=== PATIENT | female | born 1960 | race Caucasian/White ===

== ENCOUNTER → 2016-04-03 | Outpatient (CLI) | payer OTHER ==
[2016-04-03 13:19] LABS: ANION GAP 8 MEQ/L (8-16); BLOOD UREA NITROGEN 22 MG/DL (7-18); CALCIUM LEVEL 9.1 MG/DL (8.5-10.1); CARBON DIOXIDE LEVEL 29 MEQ/L (21-32); CHLORIDE LEVEL 108 MEQ/L (98-107); CHOLESTEROL LEVEL 136 MG/DL (<200); CREATININE FOR GFR 0.84 MG/DL (0.55-1.02); FREE T4 0.98 NG/DL (0.76-1.46); GLOMERULAR FILTRATION RATE > 60.0 (>51); GLUCOSE, FASTING 97 MG/DL (70-105); POTASSIUM SERUM 4.4 MEQ/L (3.5-5.1); SODIUM LEVEL 145 MEQ/L (136-145); TRIGLYCERIDES LEVEL 40 MG/DL (<150)
== END ==
LOC: M WUC 09:22
PROVIDERS: ATTEND Physician Assistant
DX: I10 Essential (primary) hypertension (principal)

== ENCOUNTER → 2016-05-08 | Outpatient (REF) | payer OTHER | LOC: M LAB REF 16:56 | PROVIDERS: ATTEND Family Medicine | DX: L02.214 Cutaneous abscess of groin (principal) ==

== ENCOUNTER → 2016-06-19 | Outpatient (REF) | payer OTHER | LOC: M LAB REF 16:17 | PROVIDERS: ATTEND Surgery | DX: L02.224 Furuncle of groin (principal) ==

== ENCOUNTER → 2016-06-20 | Outpatient (CLI) | payer OTHER ==
[2016-06-20 19:16] LABS: BASO % 0.4 % (0.0-1.0); EOS # 0.2 K/mm3 (0.0-0.50); EOS % 2.9 % (0.0-3.0); LARGE UNSTAINED CELL # 0.1 K/mm3 (0.0-0.4); LARGE UNSTAINED CELL % 1.9 % (0.0-4.0); LYMPH # 1.8 K/mm3 (1.5-4.5); LYMPH % 29.4 % (24.0-44.0); MEAN CORPUSCULAR HEMOGLOBIN 31.4 pg (27.0-33.0); MEAN CORPUSCULAR HGB CONC 34.3 g/dl (32.0-36.5); MEAN CORPUSCULAR VOLUME 91.7 fl (80.0-96.0); MONO # 0.3 K/mm3 (0.0-0.8); MONO % 5.4 % (0.0-5.0); NEUTROPHILS # 3.5 K/mm3 (1.8-7.7); NEUTROPHILS % 60.1 % (36.0-66.0); PLATELET COUNT, AUTOMATED 264 k/mm3 (150-450); RED CELL DISTRIBUTION WIDTH 13.5 % (11.5-14.5); WHITE BLOOD COUNT 5.9 K/mm3 (4.0-10.0)
[2016-06-20 19:54] LABS: ERYTHROCYTE SEDIMENTATION RATE 8 mm/hr (0-30)
== END ==
LOC: M WUC 13:35
PROVIDERS: ATTEND Physician Assistant
DX: M17.11 Unilateral primary osteoarthritis, right knee (principal)

== ENCOUNTER → 2016-08-22 | Outpatient (CLI) | payer OTHER ==
[2016-08-24 00:07] LABS: Lyme Disease IgG/IgM Antibodie <0.91 ISR (0.00-0.90); Lyme Disease IgM Ab Quantitati <0.80 index (0.00-0.79)
== END ==
LOC: M WUC 10:10
PROVIDERS: ATTEND Physician Assistant
DX: M17.11 Unilateral primary osteoarthritis, right knee (principal)

== ENCOUNTER → 2016-10-09 | Outpatient (CLI) | payer OTHER ==
[2016-10-11 00:06] LABS: Lyme Disease IgG/IgM Antibodie <0.91 ISR (0.00-0.90); Lyme Disease IgM Ab Quantitati <0.80 index (0.00-0.79)
== END ==
LOC: M WUC 10:39
PROVIDERS: ATTEND Family Medicine
DX: R21 Rash and other nonspecific skin eruption (principal)

== ENCOUNTER → 2017-03-22 | Outpatient (REF) | payer OTHER | LOC: M LAB REF 16:09 | DX: J02.9 Acute pharyngitis, unspecified (principal) ==

== ENCOUNTER → 2017-03-29 | Outpatient (CLI) | payer OTHER ==
[2017-03-29 13:36] LABS: BASO % 0.6 % (0.0-1.0); EOS # 0.2 10^3/uL (0.0-0.50); EOS % 2.9 % (0.0-3.0); HEMATOCRIT 43.1 % (36.0-47.0); HEMOGLOBIN 14.8 g/dl (12.0-16.0); IMMATURE GRANULOCYTE % 0.2 % (0-0); LYMPH % 37.8 % (24.0-44.0); MEAN CORPUSCULAR HEMOGLOBIN 31.1 pg (27.0-33.0); MEAN CORPUSCULAR HGB CONC 34.3 g/dl (32.0-36.5); MEAN CORPUSCULAR VOLUME 90.5 fl (80.0-96.0); MONO # 0.3 10^3/uL (0.0-0.8); MONO % 5.6 % (0.0-5.0); NEUTROPHILS # 2.8 10^3/uL (1.8-7.7); NEUTROPHILS % 52.9 % (36.0-66.0); PLATELET COUNT, AUTOMATED 291 10^3/uL (150-450); RED BLOOD COUNT 4.76 10^6/uL (4.00-5.40); RED CELL DISTRIBUTION WIDTH 13.1 % (11.5-14.5); WHITE BLOOD COUNT 5.2 10^3/uL (4.0-10.0)
[2017-03-29 14:12] LABS: ALBUMIN 3.9 GM/DL (3.2-5.2); ALKALINE PHOSPHATASE 65 U/L (45-117); ALT/SGPT 17 U/L (12-78); ANION GAP 9 MEQ/L (8-16); AST/SGOT 14 U/L (7-37); BILIRUBIN,TOTAL 0.5 MG/DL (0.2-1.0); BLOOD UREA NITROGEN 15 MG/DL (7-18); CALCIUM LEVEL 9.4 MG/DL (8.5-10.1); CARBON DIOXIDE LEVEL 28 MEQ/L (21-32); CHLORIDE LEVEL 106 MEQ/L (98-107); CHOLESTEROL LEVEL 124 MG/DL (<200); CHOLESTEROL RISK RATIO 2.638 (<5); CREATININE FOR GFR 0.78 MG/DL (0.55-1.02); GLOMERULAR FILTRATION RATE > 60.0 (>51); GLUCOSE, FASTING 91 MG/DL (70-105); HDL CHOLESTEROL 47 MG/DL (>40); NON-HDL-C 77 MG/DL; POTASSIUM SERUM 4.3 MEQ/L (3.5-5.1); SODIUM LEVEL 143 MEQ/L (136-145); TOTAL PROTEIN 7.3 GM/DL (6.4-8.2); TRIGLYCERIDES LEVEL 50 MG/DL (<150)
[2017-03-29 14:13] LABS: ALBUMIN/GLOBULIN RATIO 1.15 (1.00-1.93)
== END ==
LOC: M WUC 08:57
DX: I10 Essential (primary) hypertension (principal)
CPT/HCPCS: 80053

== ENCOUNTER → 2017-09-02 | Outpatient (REF) | payer OTHER | LOC: M LAB REF 16:41 | DX: J02.9 Acute pharyngitis, unspecified (principal) ==

== ENCOUNTER → 2017-10-02 | Outpatient (CLI) | payer OTHER ==
[2017-10-02 08:47] LABS: BASO % 0.4 % (0.0-1.0); EOS # 0.1 10^3/uL (0.0-0.50); EOS % 1.6 % (0.0-3.0); HEMATOCRIT 41.1 % (36.0-47.0); IMMATURE GRANULOCYTE % 0.2 % (0-3.0); LYMPH # 1.9 10^3/uL (1.5-4.5); LYMPH % 37.4 % (24.0-44.0); MEAN CORPUSCULAR HEMOGLOBIN 31.4 pg (27.0-33.0); MEAN CORPUSCULAR HGB CONC 34.1 g/dl (32.0-36.5); MEAN CORPUSCULAR VOLUME 92.2 fl (80.0-96.0); MONO # 0.3 10^3/uL (0.0-0.8); MONO % 5.7 % (0.0-5.0); NEUTROPHILS # 2.8 10^3/uL (1.8-7.7); NEUTROPHILS % 54.7 % (36.0-66.0); PLATELET COUNT, AUTOMATED 251 10^3/uL (150-450); RED BLOOD COUNT 4.46 10^6/uL (4.00-5.40); RED CELL DISTRIBUTION WIDTH 13.5 % (11.5-14.5); WHITE BLOOD COUNT 5.1 10^3/uL (4.0-10.0)
[2017-10-02 09:03] LABS: ALBUMIN 3.6 GM/DL (3.2-5.2); ALBUMIN/GLOBULIN RATIO 1.09 (1.00-1.93); ALKALINE PHOSPHATASE 72 U/L (45-117); ALT/SGPT 18 U/L (12-78); ANION GAP 6 MEQ/L (8-16); AST/SGOT 11 U/L (7-37); BILIRUBIN,TOTAL 0.4 MG/DL (0.2-1.0); BLOOD UREA NITROGEN 19 MG/DL (7-18); CALCIUM LEVEL 8.5 MG/DL (8.5-10.1); CARBON DIOXIDE LEVEL 28 MEQ/L (21-32); CHLORIDE LEVEL 108 MEQ/L (98-107); CHOLESTEROL LEVEL 136 MG/DL (<200); CHOLESTEROL RISK RATIO 2.305 (<5); CREATININE FOR GFR 0.81 MG/DL (0.55-1.30); GLOMERULAR FILTRATION RATE > 60.0 (>51); GLUCOSE, FASTING 94 MG/DL (70-100); HDL CHOLESTEROL 59 MG/DL (>40); LDL CHOLESTEROL 68.4 MG/DL (<100); NON-HDL-C 77 MG/DL; POTASSIUM SERUM 4.2 MEQ/L (3.5-5.1); SODIUM LEVEL 142 MEQ/L (136-145); TOTAL PROTEIN 6.9 GM/DL (6.4-8.2); TRIGLYCERIDES LEVEL 43 MG/DL (<150)
== END ==
LOC: M WUC 08:18
DX: I10 Essential (primary) hypertension (principal)
CPT/HCPCS: 80053

== ENCOUNTER → 2018-07-01 | Outpatient (CLI) | payer OTHER ==
[2018-07-01 09:28] LABS: BASO % 0.3 % (0.0-1.0); EOS # 0.1 10^3/uL (0.0-0.50); HEMATOCRIT 41.9 % (36.0-47.0); HEMOGLOBIN 13.9 g/dl (12.0-15.5); LYMPH % 16.4 % (24.0-44.0); MEAN CORPUSCULAR HEMOGLOBIN 30.8 pg (27.0-33.0); MEAN CORPUSCULAR HGB CONC 33.2 g/dl (32.0-36.5); MEAN CORPUSCULAR VOLUME 92.7 fl (80.0-96.0); MONO # 0.5 10^3/uL (0.0-0.8); MONO % 7.6 % (0.0-5.0); NEUTROPHILS # 4.5 10^3/uL (1.8-7.7); NEUTROPHILS % 74.5 % (36.0-66.0); PLATELET COUNT, AUTOMATED 244 10^3/uL (150-450); RED BLOOD COUNT 4.52 10^6/uL (4.00-5.40)
[2018-07-01 10:01] LABS: ALBUMIN 3.8 GM/DL (3.2-5.2); ALT/SGPT 26 U/L (12-78); BILIRUBIN,TOTAL 0.8 MG/DL (0.2-1.0); BLOOD UREA NITROGEN 13 MG/DL (7-18); CARBON DIOXIDE LEVEL 28 MEQ/L (21-32); CHLORIDE LEVEL 107 MEQ/L (98-107); CHOLESTEROL LEVEL 179 MG/DL (<200); CHOLESTEROL RISK RATIO 2.934 (<5); CREATININE FOR GFR 0.74 MG/DL (0.55-1.30); FREE T4 1.01 NG/DL (0.76-1.46); GLOMERULAR FILTRATION RATE > 60.0 (>51); GLUCOSE, FASTING 100 MG/DL (70-100); HDL CHOLESTEROL 61 MG/DL (>40); LDL CHOLESTEROL 106 MG/DL (<100); NON-HDL-C 118 MG/DL; POTASSIUM SERUM 4.2 MEQ/L (3.5-5.1); SODIUM LEVEL 141 MEQ/L (136-145); TOTAL PROTEIN 7.1 GM/DL (6.4-8.2); TRIGLYCERIDES LEVEL 59 MG/DL (<150)
== END ==
LOC: M WUC 08:14
PROVIDERS: ATTEND Physician Assistant
DX: E78.5 Hyperlipidemia, unspecified (principal); I10 Essential (primary) hypertension

== ENCOUNTER → 2018-07-21 | Outpatient (CLI) | payer OTHER ==
[2018-07-28 14:16] LABS: STREP PNEUMO TYPE 1 <0.1 ug/mL (>1.3); STREP PNEUMO TYPE 12F <0.1 ug/mL (>1.3); STREP PNEUMO TYPE 14 7.3 ug/mL (>1.3); STREP PNEUMO TYPE 18C 0.1 ug/mL (>1.3); STREP PNEUMO TYPE 19A 0.7 ug/mL (>1.3); STREP PNEUMO TYPE 19F 1.2 ug/mL (>1.3); STREP PNEUMO TYPE 23F 0.2 ug/mL (>1.3); STREP PNEUMO TYPE 3 1.1 ug/mL (>1.3); STREP PNEUMO TYPE 4 <0.1 ug/mL (>1.3); STREP PNEUMO TYPE 6B 0.9 ug/mL (>1.3); STREP PNEUMO TYPE 7F 10.5 ug/mL (>1.3); STREP PNEUMO TYPE 8 2.3 ug/mL (>1.3); STREP PNEUMO TYPE 9N <0.1 ug/mL (>1.3); STREP PNEUMO TYPE 9V 0.2 ug/mL (>1.3)
== END ==
LOC: M WUC 12:00
PROVIDERS: ATTEND Family Medicine
DX: J32.9 Chronic sinusitis, unspecified (principal)

== ENCOUNTER → 2018-10-31 | Outpatient (CLI) | payer OTHER ==
[2018-10-31 11:27] LABS: BLOOD UREA NITROGEN 16 MG/DL (7-18); CALCIUM LEVEL 9.1 MG/DL (8.5-10.1); CARBON DIOXIDE LEVEL 31 MEQ/L (21-32); CHLORIDE LEVEL 105 MEQ/L (98-107); CREATININE FOR GFR 0.88 MG/DL (0.55-1.30); GLOMERULAR FILTRATION RATE > 60.0 (>51); GLUCOSE, FASTING 91 MG/DL (70-100); POTASSIUM SERUM 4.7 MEQ/L (3.5-5.1); SODIUM LEVEL 141 MEQ/L (136-145)
== END ==
LOC: M WUC 09:18
PROVIDERS: ATTEND Physician Assistant
DX: I10 Essential (primary) hypertension (principal)

== ENCOUNTER → 2018-12-05 | Outpatient (REF) | payer OTHER | LOC: M LAB REF 13:26 | PROVIDERS: ATTEND Physician Assistant | DX: J02.9 Acute pharyngitis, unspecified (principal) ==

== ENCOUNTER → 2019-01-05 | Outpatient (CLI) | payer OTHER ==
[2019-01-05 12:41] LABS: BASO % 0.4 % (0.0-1.0); EOS # 0.1 10^3/uL (0.0-0.5); EOS % 2.1 % (0.0-3.0); HEMATOCRIT 43.9 % (36.0-47.0); HEMOGLOBIN 14.6 g/dl (12.0-15.5); LYMPH % 37.1 % (24.0-44.0); MEAN CORPUSCULAR HEMOGLOBIN 31.2 pg (27.0-33.0); MEAN CORPUSCULAR HGB CONC 33.3 g/dl (32.0-36.5); MEAN CORPUSCULAR VOLUME 93.8 fl (80.0-96.0); MONO # 0.3 10^3/uL (0.0-0.8); NEUTROPHILS # 2.9 10^3/uL (1.5-8.5); NEUTROPHILS % 54.2 % (36.0-66.0); PLATELET COUNT, AUTOMATED 300 10^3/uL (150-450); RED BLOOD COUNT 4.68 10^6/uL (4.00-5.40); WHITE BLOOD COUNT 5.3 10^3/uL (4.0-10.0)
[2019-01-05 12:54] LABS: ALBUMIN 3.7 GM/DL (3.2-5.2); ALT/SGPT 16 U/L (12-78); BILIRUBIN,TOTAL 0.6 MG/DL (0.2-1.0); BLOOD UREA NITROGEN 17 MG/DL (7-18); CALCIUM LEVEL 9.2 MG/DL (8.5-10.1); CARBON DIOXIDE LEVEL 29 MEQ/L (21-32); CHLORIDE LEVEL 104 MEQ/L (98-107); CREATININE FOR GFR 0.77 MG/DL (0.55-1.30); GLOMERULAR FILTRATION RATE > 60.0 (>51); GLUCOSE, FASTING 87 MG/DL (70-100); POTASSIUM SERUM 3.8 MEQ/L (3.5-5.1); SODIUM LEVEL 140 MEQ/L (136-145)
== END ==
LOC: M WUC 08:54
PROVIDERS: ATTEND Family Medicine
DX: I10 Essential (primary) hypertension (principal)

== ENCOUNTER → 2019-06-23 | Outpatient (CLI) | payer OTHER ==
[2019-06-23 13:15] LABS: BASO % 0.6 % (0.0-1.0); EOS # 0.1 10^3/uL (0.0-0.5); EOS % 2.2 % (0.0-3.0); HEMATOCRIT 44.7 % (36.0-47.0); HEMOGLOBIN 14.8 g/dl (12.0-15.5); LYMPH # 1.6 10^3/uL (1.5-5.0); LYMPH % 29.7 % (24.0-44.0); MEAN CORPUSCULAR HEMOGLOBIN 30.7 pg (27.0-33.0); MEAN CORPUSCULAR HGB CONC 33.1 g/dl (32.0-36.5); MEAN CORPUSCULAR VOLUME 92.7 fl (80.0-96.0); MONO # 0.4 10^3/uL (0.0-0.8); MONO % 6.6 % (0.0-5.0); NEUTROPHILS # 3.3 10^3/uL (1.5-8.5); NEUTROPHILS % 60.5 % (36.0-66.0); PLATELET COUNT, AUTOMATED 301 10^3/uL (150-450); RED BLOOD COUNT 4.82 10^6/uL (4.00-5.40); WHITE BLOOD COUNT 5.4 10^3/uL (4.0-10.0)
[2019-06-23 13:27] LABS: ALBUMIN 3.7 GM/DL (3.2-5.2); ALT/SGPT 17 U/L (12-78); BILIRUBIN,TOTAL 0.4 MG/DL (0.2-1.0); BLOOD UREA NITROGEN 17 MG/DL (7-18); CALCIUM LEVEL 9.3 MG/DL (8.5-10.1); CARBON DIOXIDE LEVEL 30 MEQ/L (21-32); CHLORIDE LEVEL 105 MEQ/L (98-107); CHOLESTEROL LEVEL 152 MG/DL (<200); CREATININE FOR GFR 0.78 MG/DL (0.55-1.30); FREE T4 0.94 NG/DL (0.76-1.46); GLOMERULAR FILTRATION RATE > 60.0 (>51); GLUCOSE, FASTING 95 MG/DL (70-100); HDL CHOLESTEROL 50 MG/DL (>40); LDL CHOLESTEROL 92 MG/DL (<100); NON-HDL-C 102 MG/DL; POTASSIUM SERUM 3.8 MEQ/L (3.5-5.1); SODIUM LEVEL 141 MEQ/L (136-145); TOTAL PROTEIN 7.2 GM/DL (6.4-8.2); TRIGLYCERIDES LEVEL 50 MG/DL (<150)
== END ==
LOC: M WUC 08:29
PROVIDERS: ATTEND Physician Assistant
DX: E78.5 Hyperlipidemia, unspecified (principal); I10 Essential (primary) hypertension

== ENCOUNTER → 2019-12-30 | Outpatient (CLI) | payer OTHER ==
[2019-12-30 11:20] LABS: BASO % 0.4 % (0.0-1.0); EOS # 0.1 10^3/uL (0.0-0.5); EOS % 1.8 % (0.0-3.0); HEMATOCRIT 42.6 % (36.0-47.0); HEMOGLOBIN 13.8 g/dl (12.0-15.5); LYMPH # 1.8 10^3/uL (1.5-5.0); LYMPH % 36.6 % (24.0-44.0); MEAN CORPUSCULAR HGB CONC 32.4 g/dl (32.0-36.5); MEAN CORPUSCULAR VOLUME 92.6 fl (80.0-96.0); MONO # 0.3 10^3/uL (0.0-0.8); MONO % 5.9 % (0.0-5.0); NEUTROPHILS # 2.7 10^3/uL (1.5-8.5); NEUTROPHILS % 55.1 % (36.0-66.0); PLATELET COUNT, AUTOMATED 276 10^3/uL (150-450); WHITE BLOOD COUNT 4.9 10^3/uL (4.0-10.0)
[2019-12-30 12:01] LABS: ALBUMIN 3.8 GM/DL (3.2-5.2); ALT/SGPT 16 U/L (12-78); BILIRUBIN,TOTAL 0.7 MG/DL (0.2-1.0); BLOOD UREA NITROGEN 17 MG/DL (7-18); CALCIUM LEVEL 9.5 MG/DL (8.5-10.1); CARBON DIOXIDE LEVEL 27 MEQ/L (21-32); CHLORIDE LEVEL 107 MEQ/L (98-107); CHOLESTEROL LEVEL 148 MG/DL (<200); CHOLESTEROL RISK RATIO 2.846 (<5); CREATININE FOR GFR 0.74 MG/DL (0.55-1.30); FREE T4 1.03 NG/DL (0.76-1.46); GLOMERULAR FILTRATION RATE > 60.0 (>51); GLUCOSE, FASTING 83 MG/DL (70-100); HDL CHOLESTEROL 52 MG/DL (>40); LDL CHOLESTEROL 87 MG/DL (<100); NON-HDL-C 96 MG/DL; POTASSIUM SERUM 4.3 MEQ/L (3.5-5.1); SODIUM LEVEL 141 MEQ/L (136-145); TOTAL PROTEIN 7.3 GM/DL (6.4-8.2); TRIGLYCERIDES LEVEL 47 MG/DL (<150)
== END ==
LOC: M WUC 08:22
PROVIDERS: ATTEND Family Medicine
DX: I10 Essential (primary) hypertension (principal); Z13.29 Encounter for screening for other suspected endocrine disorder; Z13.0 Encounter for screening for diseases of the blood and blood-forming organs and certain disorders involving the immune mechanism

== ENCOUNTER → 2020-02-15 | Outpatient (CLI) | payer SELFPAY | LOC: M LABSMTC 16:28 | PROVIDERS: ATTEND Pediatrics | DX: Z20.828 Contact with and (suspected) exposure to other viral communicable diseases (principal) ==

== ENCOUNTER → 2020-04-22 | Outpatient (CLI) | payer OTHER ==
--- NOTE | 2020-04-22 15:23 | REP ---
INDICATION: PAIN. Lump over the area of the 5th metatarsal. Denies injury. COMPARISON: None. TECHNIQUE: Four views of the right foot FINDINGS: Four views of the right foot demonstrate normal bones, joints, and soft tissues. No fracture or subluxation is seen. No opaque foreign body noted. No soft tissue abnormality is noted. IMPRESSION: Negative radiographs of the right foot.. <Electronically signed by Jay García > 04/22/20 [id number]
== END ==
LOC: M WUC 13:37
PROVIDERS: ATTEND Physician Assistant
DX: M79.671 Pain in right foot (principal)

== ENCOUNTER → 2020-07-13 | Outpatient (CLI) | payer OTHER ==
[2020-07-13 16:41] LABS: BASO % 0.3 % (0.0-1.0); EOS # 0.1 10^3/uL (0.0-0.5); EOS % 1.1 % (0.0-3.0); HEMATOCRIT 42.7 % (36.0-47.0); HEMOGLOBIN 13.9 g/dl (12.0-15.5); LYMPH # 1.2 10^3/uL (1.5-5.0); LYMPH % 18.8 % (24.0-44.0); MEAN CORPUSCULAR HEMOGLOBIN 30.6 pg (27.0-33.0); MEAN CORPUSCULAR HGB CONC 32.6 g/dl (32.0-36.5); MEAN CORPUSCULAR VOLUME 94.1 fl (80.0-96.0); MONO # 0.3 10^3/uL (0.0-0.8); MONO % 5.4 % (2.0-8.0); NEUTROPHILS # 4.7 10^3/uL (1.5-8.5); NEUTROPHILS % 74.2 % (36.0-66.0); PLATELET COUNT, AUTOMATED 261 10^3/uL (150-450); RED BLOOD COUNT 4.54 10^6/uL (4.00-5.40); WHITE BLOOD COUNT 6.3 10^3/uL (4.0-10.0)
[2020-07-13 16:47] LABS: ALBUMIN 3.9 GM/DL (3.2-5.2); ALT/SGPT 19 U/L (12-78); BILIRUBIN,TOTAL 0.6 MG/DL (0.2-1.0); BLOOD UREA NITROGEN 13 MG/DL (7-18); CALCIUM LEVEL 9.4 MG/DL (8.5-10.1); CARBON DIOXIDE LEVEL 30 MEQ/L (21-32); CHLORIDE LEVEL 107 MEQ/L (98-107); CHOLESTEROL LEVEL 153 MG/DL (<200); CHOLESTEROL RISK RATIO 2.781 (<5); CREATININE FOR GFR 0.68 MG/DL (0.55-1.30); FREE T4 0.92 NG/DL (0.76-1.46); GLOMERULAR FILTRATION RATE > 60.0 (>51); GLUCOSE, FASTING 102 MG/DL (70-100); HDL CHOLESTEROL 55 MG/DL (>40); LDL CHOLESTEROL 90 MG/DL (<100); NON-HDL-C 98 MG/DL; POTASSIUM SERUM 4.2 MEQ/L (3.5-5.1); SODIUM LEVEL 140 MEQ/L (136-145); THYROID STIMULATING HORMONE 0.999 uIU/ML (0.358-3.740); TOTAL PROTEIN 6.9 GM/DL (6.4-8.2); TRIGLYCERIDES LEVEL 42 MG/DL (<150)
== END ==
LOC: M WUC 10:54
PROVIDERS: ATTEND Physician Assistant
DX: R19.4 Change in bowel habit (principal); I10 Essential (primary) hypertension

== ENCOUNTER → 2020-07-13 | Outpatient (CLI) | payer OTHER ==
--- NOTE | 2020-07-14 06:48 | REP ---
INDICATION: PAIN COMPARISON: None. TECHNIQUE: AP, lateral, and swimmers views. FINDINGS: Alignment and kyphosis is maintained. Vertebral bodies intact. No acute fracture / compression injury or subluxation. Paravertebral soft tissues are normal. IMPRESSION: Normal age-appropriate thoracic spine series. <Electronically signed by Medardo Bartlett > 07/14/20 [id number]
== END ==
LOC: M WUC 10:58
PROVIDERS: ATTEND Family Medicine
DX: M54.6 Pain in thoracic spine (principal)

== ENCOUNTER → 2020-08-01 | Outpatient (CLI) | payer OTHER ==
--- NOTE | 2020-08-01 11:43 | DEXAMM ---
INDICATION: SCR FOR OSTEOPOROSIS/[id number]. COMPARISON: None. TECHNIQUE: Bone density was measured using dual-energy x-ray absorptionmetry (DEXA). FINDINGS: AP SPINE L1-L4 BMD 1.356 g/cm2 Young Adult T-Score 1.3 Age Matched Z-Score 2.5. LT FEMUR, TOTAL BMD 0.931 g/cm2 Young Adult T-Score -0.6 Age Matched Z-Score 0.3. LT NECK BMD 0.910 g/cm2 Young Adult T-Score -0.9 Age Matched Z-Score 0.3. RT FEMUR, TOTAL BMD 0.861 g/cm2 Young Adult T-Score -1.2 Age Matched Z-Score -0.3. RT NECK BMD 0.898 g/cm2 Young Adult T-Score -1.0 Age Matched Z-Score 0.2. IMPRESSION: There is normal bone density of the spine. There is normal bone density of the left hip. There is low bone density of the right hip. FOLLOW-UP: Recommendation for the next bone density exam: 2 years. <Electronically signed by Jay García > 08/01/20 [id number]
== END ==
LOC: M WHC 10:52
PROVIDERS: ATTEND Family Medicine
DX: Z13.820 Encounter for screening for osteoporosis (principal)

== ENCOUNTER 2020-12-20 19:31 | Emergency (ER) | payer OTHER ==
[~2020-12-20] VITALS: Ht 172.7 cm; Wt 92.6 kg
[2020-12-20 19:31] VITALS: BP 185/85
== END 2020-12-20 20:17 | disposition left against medical advice (07) ==
LOC: M ED 19:31
DX: Z53.29 Procedure and treatment not carried out because of patient's decision for other reasons (principal)

== ENCOUNTER → 2020-12-20 | Outpatient (REF) | payer OTHER | LOC: M LAB REF 16:51 | PROVIDERS: ATTEND Physician Assistant | DX: J06.9 Acute upper respiratory infection, unspecified (principal) ==

== ENCOUNTER → 2021-01-02 | Outpatient (CLI) | payer OTHER ==
--- NOTE | 2021-01-02 10:36 | REP ---
INDICATION: COUGH. COMPARISON: None. TECHNIQUE: PA and lateral FINDINGS: The superior mediastinal structures are midline. The cardiac silhouette is unremarkable in size, shape, and position. The diaphragmatic surfaces of the lungs are regular, and the costophrenic angles are clear. The pulmonary vickers are clear. The imaged osseous structures are intact. IMPRESSION: There is no acute cardiopulmonary disease. <Electronically signed by Jose Montemayor > 01/02/21 [id number]
== END ==
LOC: M WUC 09:02
PROVIDERS: ATTEND Physician Assistant
DX: R05.9 Cough, unspecified (principal)

== ENCOUNTER → 2021-01-12 | Outpatient (CLI) | payer OTHER ==
[2021-01-12 11:46] LABS: BASO % 0.6 % (0.0-1.0); EOS # 0.1 10^3/uL (0.0-0.5); EOS % 2.1 % (0.0-3.0); HEMATOCRIT 42.1 % (36.0-47.0); HEMOGLOBIN 13.9 g/dl (12.0-15.5); LYMPH # 2.1 10^3/uL (1.5-5.0); LYMPH % 39.7 % (24.0-44.0); MEAN CORPUSCULAR HEMOGLOBIN 30.5 pg (27.0-33.0); MEAN CORPUSCULAR VOLUME 92.5 fl (80.0-96.0); MONO # 0.4 10^3/uL (0.0-0.8); MONO % 7.4 % (2.0-8.0); NEUTROPHILS # 2.6 10^3/uL (1.5-8.5); PLATELET COUNT, AUTOMATED 273 10^3/uL (150-450); RED BLOOD COUNT 4.55 10^6/uL (4.00-5.40); WHITE BLOOD COUNT 5.3 10^3/uL (4.0-10.0)
[2021-01-12 12:29] LABS: ALBUMIN 3.5 GM/DL (3.2-5.2); ALT/SGPT 24 U/L (12-78); BILIRUBIN,TOTAL 0.7 MG/DL (0.2-1.0); BLOOD UREA NITROGEN 18 MG/DL (7-18); CALCIUM LEVEL 9.3 MG/DL (8.8-10.2); CARBON DIOXIDE LEVEL 30 MEQ/L (21-32); CHLORIDE LEVEL 108 MEQ/L (98-107); CHOLESTEROL LEVEL 180 MG/DL (<200); CHOLESTEROL RISK RATIO 3.396 (<5); CREATININE FOR GFR 0.82 MG/DL (0.55-1.30); FREE T4 0.98 NG/DL (0.76-1.46); GLOMERULAR FILTRATION RATE > 60.0 (>45); GLUCOSE, FASTING 93 MG/DL (70-100); HDL CHOLESTEROL 53 MG/DL (>40); LDL CHOLESTEROL 116 MG/DL (<100); NON-HDL-C 127 MG/DL; POTASSIUM SERUM 4.4 MEQ/L (3.5-5.1); SODIUM LEVEL 141 MEQ/L (136-145); THYROID STIMULATING HORMONE 0.909 uIU/ML (0.358-3.740); TOTAL PROTEIN 6.8 GM/DL (6.4-8.2); TRIGLYCERIDES LEVEL 53 MG/DL (<150)
== END ==
LOC: M WUC 09:03
PROVIDERS: ATTEND Family Medicine
DX: E78.5 Hyperlipidemia, unspecified (principal); I10 Essential (primary) hypertension

== ENCOUNTER → 2021-04-28 | Outpatient (REF) | payer OTHER | LOC: M LAB REF 16:02 | PROVIDERS: ATTEND Family Medicine | DX: J06.9 Acute upper respiratory infection, unspecified (principal) ==

== ENCOUNTER 2021-06-10 19:45 | Emergency (ER) | payer OTHER ==
[~2021-06-10] VITALS: Ht 172.7 cm; Wt 95.8 kg
[2021-06-10] MEDS ORDERED: NS 1,000 ML IV ONE (20:25)
[2021-06-10 20:52] LABS: BASO % 0.2 % (0.0-1.0); EOS % 0.3 % (0.0-3.0); HEMATOCRIT 42.2 % (36.0-47.0); HEMOGLOBIN 14.6 g/dl (12.0-15.5); LYMPH # 0.8 10^3/uL (1.5-5.0); LYMPH % 13.1 % (24.0-44.0); MEAN CORPUSCULAR HEMOGLOBIN 31.1 pg (27.0-33.0); MEAN CORPUSCULAR HGB CONC 34.6 g/dl (32.0-36.5); MONO # 0.3 10^3/uL (0.0-0.8); MONO % 5.2 % (2.0-8.0); NEUTROPHILS % 80.9 % (36.0-66.0); PLATELET COUNT, AUTOMATED 251 10^3/uL (150-450); RED BLOOD COUNT 4.69 10^6/uL (4.00-5.40); WHITE BLOOD COUNT 6.2 10^3/uL (4.0-10.0)
[2021-06-10 21:16] LABS: CK-MB VALUE MASS < 1.0 NG/ML (<3.6); CPK CREATINE PHOSPHOKINASE 35 U/L (26-192); MB/CK RELATIVE INDEX 2.86 (< OR =4)
[2021-06-10 21:32] LABS: ALBUMIN 3.4 GM/DL (3.2-5.2); BILIRUBIN,DIRECT 0.2 MG/DL (0.0-0.2); BILIRUBIN,TOTAL 0.8 MG/DL (0.2-1.0); TOTAL PROTEIN 6.8 GM/DL (6.4-8.2)
[2021-06-10] MEDS ORDERED: ONDA4TAB6 PO (21:39)
[2021-06-10] MEDS ORDERED: KETOROLAC 30 MG/ML 1ML VIAL IV ONE (21:40)
[2021-06-10 22:26] VITALS: BP 111/65
== END 2021-06-10 22:28 | disposition home or self-care (01) ==
LOC: M ED 19:45
DX: R11.2 Nausea with vomiting, unspecified (principal); R19.7 Diarrhea, unspecified; A05.9 Bacterial foodborne intoxication, unspecified; I10 Essential (primary) hypertension; Z88.1 Allergy status to other antibiotic agents
CPT/HCPCS: 80047; 80076; 81001; 82150; 82550; 82553; 83690; 84484; 85025; 87086; 93005; 93041; 96361; 96374; 99284; J1885

== ENCOUNTER → 2021-09-27 | Outpatient (CLI) | payer OTHER ==
[~2021-09-27] MED LIST: ONDA4TAB6 PO
[2021-09-27 18:15] LABS: BASO % 0.4 % (0.0-1.0); EOS # 0.1 10^3/uL (0.0-0.5); HEMATOCRIT 43.7 % (36.0-47.0); HEMOGLOBIN 14.1 g/dl (12.0-15.5); LYMPH # 2.4 10^3/uL (1.5-5.0); LYMPH % 33.5 % (24.0-44.0); MEAN CORPUSCULAR HGB CONC 32.3 g/dl (32.0-36.5); MONO # 0.4 10^3/uL (0.0-0.8); NEUTROPHILS # 4.3 10^3/uL (1.5-8.5); NEUTROPHILS % 59.8 % (36.0-66.0); PLATELET COUNT, AUTOMATED 291 10^3/uL (150-450); WHITE BLOOD COUNT 7.1 10^3/uL (4.0-10.0)
[2021-09-27 18:54] LABS: ERYTHROCYTE SEDIMENTATION RATE 8 mm/hr (0-30)
[2021-09-27 19:18] LABS: ALBUMIN 3.9 GM/DL (3.2-5.2); ALT/SGPT 19 U/L (12-78); BILIRUBIN,TOTAL 0.5 MG/DL (0.2-1.0); BLOOD UREA NITROGEN 14 MG/DL (7-18); CALCIUM LEVEL 9.3 MG/DL (8.8-10.2); CARBON DIOXIDE LEVEL 27 MEQ/L (21-32); CHLORIDE LEVEL 107 MEQ/L (98-107); CREATININE FOR GFR 0.82 MG/DL (0.55-1.30); FREE T4 0.93 NG/DL (0.76-1.46); GLOMERULAR FILTRATION RATE > 60.0 (>45); GLUCOSE, FASTING 129 MG/DL (70-100); POTASSIUM SERUM 4.1 MEQ/L (3.5-5.1); SODIUM LEVEL 140 MEQ/L (136-145); TOTAL PROTEIN 7.2 GM/DL (6.4-8.2)
[2021-09-29 20:07] LABS: ANA (HEP2) Positive (.); IgG P18 AB Absent (.); IgG P23 AB Absent (.); IgG P28 AB Absent (.); IgG P30 AB Absent (.); IgG P39 AB Absent (.); IgG P41 AB Present (.); IgG P45 AB Absent (.); IgG P66 AB Absent (.); IgG P93 AB Present (.); IgM P23 AB Absent (.); IgM P39 AB Absent (.); IgM P41 AB Present (.); LYME IgG WB INTERPRETATION Negative (.); LYME IgM WB INTERPRETATION Negative (.)
== END ==
LOC: M WUC 14:27
PROVIDERS: ATTEND Physician Assistant
DX: G44.019 Episodic cluster headache, not intractable (principal)

== ENCOUNTER → 2022-03-01 | Outpatient (REF) | payer OTHER | LOC: M WUC 12:34 | PROVIDERS: ATTEND Physician Assistant | DX: J06.9 Acute upper respiratory infection, unspecified (principal) ==

== ENCOUNTER → 2022-03-09 | Outpatient (REF) | payer OTHER | LOC: M LAB REF 16:05 | PROVIDERS: ATTEND Physician Assistant | DX: J20.9 Acute bronchitis, unspecified (principal) ==

== ENCOUNTER → 2022-03-14 | Outpatient (CLI) | payer OTHER ==
[~2022-03-14] MED LIST changes: +ALBU8.5H; +AZIT-12; +FLEC25TA; +LEVAINH INH; +LOSA100T45; +OXYB10TA23
[2022-03-14 18:40] LABS: BASO % 0.3 % (0.0-1.0); EOS % 0.2 % (0.0-3.0); HEMATOCRIT 42.5 % (36.0-47.0); HEMOGLOBIN 13.9 g/dl (12.0-15.5); LYMPH # 3.4 10^3/uL (1.5-5.0); LYMPH % 30.2 % (24.0-44.0); MEAN CORPUSCULAR HEMOGLOBIN 30.9 pg (27.0-33.0); MEAN CORPUSCULAR HGB CONC 32.7 g/dl (32.0-36.5); MEAN CORPUSCULAR VOLUME 94.4 fl (80.0-96.0); MONO # 0.7 10^3/uL (0.0-0.8); MONO % 6.4 % (2.0-8.0); NEUTROPHILS # 7.1 10^3/uL (1.5-8.5); NEUTROPHILS % 62.4 % (36.0-66.0); PLATELET COUNT, AUTOMATED 335 10^3/uL (150-450); WHITE BLOOD COUNT 11.3 10^3/uL (4.0-10.0)
[2022-03-14 18:53] LABS: C REACTIVE PROTEIN QUANTITATIV < 0.40 MG/DL (<1.0)
[2022-03-14 18:59] LABS: ALBUMIN 4.1 G/DL (3.2-5.2); ALKALINE PHOSPHATASE 72 U/L (46-116); ALT/SGPT 22 U/L (7.0-40); AST/SGOT 17 U/L (<34); BILIRUBIN,TOTAL 0.5 MG/DL (0.3-1.2); BLOOD UREA NITROGEN 17 MG/DL (9-23); CALCIUM LEVEL 9.2 MG/DL (8.3-10.6); CARBON DIOXIDE LEVEL 29 MMOL/L (20-31); CHLORIDE LEVEL 101 MMOL/L (98-107); CREATININE FOR GFR 0.85 MG/DL (0.55-1.30); GLOMERULAR FILTRATION RATE > 60.0 (>45); GLUCOSE, FASTING 82 MG/DL (74-106); SODIUM LEVEL 139 MMOL/L (136-145); TOTAL PROTEIN 7.3 G/DL (5.7-8.2)
== END ==
LOC: M WUC 13:01
PROVIDERS: ATTEND Physician Assistant
DX: J20.9 Acute bronchitis, unspecified (principal)

== ENCOUNTER 2022-03-19 06:56 | Emergency (ER) | payer OTHER ==
[~2022-03-19] VITALS: Ht 172.7 cm; Wt 100.9 kg
[~2022-03-19 06:56] MED LIST changes: -ALBU8.5H; -AZIT-12; -FLEC25TA; -LEVAINH INH; -LOSA100T45; -OXYB10TA23
[2022-03-19] MEDS ORDERED: LOSA100T45 (07:14)
[2022-03-19] MEDS ORDERED: OXYB10TA23 (07:14)
[2022-03-19] MEDS ORDERED: ALBU8.5H (07:14)
[2022-03-19] MEDS ORDERED: FLEC25TA (07:14)
[2022-03-19] MEDS ORDERED: AZIT-12 (07:14)
[2022-03-19 07:47] LABS: BASO % 0.3 % (0.0-1.0); EOS # 0.1 10^3/uL (0.0-0.5); HEMATOCRIT 43.7 % (36.0-47.0); HEMOGLOBIN 14.1 g/dl (12.0-15.5); LYMPH # 2.3 10^3/uL (1.5-5.0); LYMPH % 38.5 % (24.0-44.0); MEAN CORPUSCULAR HEMOGLOBIN 30.5 pg (27.0-33.0); MEAN CORPUSCULAR HGB CONC 32.3 g/dl (32.0-36.5); MEAN CORPUSCULAR VOLUME 94.6 fl (80.0-96.0); MONO # 0.4 10^3/uL (0.0-0.8); MONO % 6.6 % (2.0-8.0); NEUTROPHILS # 3.1 10^3/uL (1.5-8.5); NEUTROPHILS % 52.3 % (36.0-66.0); PLATELET COUNT, AUTOMATED 289 10^3/uL (150-450); RED BLOOD COUNT 4.62 10^6/uL (4.00-5.40); WHITE BLOOD COUNT 5.9 10^3/uL (4.0-10.0)
[2022-03-19 08:15] LABS: BLOOD UREA NITROGEN 15 MG/DL (9-23); CALCIUM LEVEL 9.9 MG/DL (8.3-10.6); CARBON DIOXIDE LEVEL 27 MMOL/L (20-31); CHLORIDE LEVEL 106 MMOL/L (98-107); CK-MB VALUE MASS < 1.0 NG/ML (<3.6); CPK CREATINE PHOSPHOKINASE 65 U/L (34-145); CREATININE FOR GFR 0.78 MG/DL (0.55-1.30); GLOMERULAR FILTRATION RATE > 60.0 (>45); GLUCOSE, FASTING 110 MG/DL (74-106); MB/CK RELATIVE INDEX 1.53 (< OR =4); SODIUM LEVEL 141 MMOL/L (136-145)
[2022-03-19] MEDS ORDERED: LEVALBUTEROL HFA 45MCG/ACT 15GM INHALER INH ONE (09:15)
[2022-03-19] MEDS ORDERED: LEVALBUTEROL 1.25MG 0.5ML CONCENTRATE NEB NEB ONE (09:55)
[2022-03-19] MEDS ORDERED: LEVAINH INH (12:15)
[2022-03-19 12:26] VITALS: BP 190/92
[2022-03-19 12:30] VITALS: BP 190/95
[2022-03-19] MEDS ORDERED: **hydrALAZINE HCL** 25 MG TAB PO ONE (12:30)
== END 2022-03-19 12:38 | disposition home or self-care (01) ==
LOC: M ED 06:56
DX: J06.9 Acute upper respiratory infection, unspecified (principal); I10 Essential (primary) hypertension; N32.81 Overactive bladder; I34.89 Other nonrheumatic mitral valve disorders; Z88.8 Allergy status to other drugs, medicaments and biological substances

== ENCOUNTER → 2022-03-26 | Outpatient (REF) | payer OTHER ==
[~2022-03-26] MED LIST changes: +ALBU8.5H; +AZIT-12; +FLEC25TA; +HYDR-3490 PO; +LEVAINH INH; +LOSA100T45; +OXYB10TA23
[2022-03-26 17:22] LABS: BLOOD UREA NITROGEN 23 MG/DL (9-23); CARBON DIOXIDE LEVEL 28 MMOL/L (20-31); CHLORIDE LEVEL 105 MMOL/L (98-107); CREATININE FOR GFR 0.82 MG/DL (0.55-1.30); GLOMERULAR FILTRATION RATE > 60.0 (>45); GLUCOSE, FASTING 88 MG/DL (74-106); POTASSIUM SERUM 4.1 MMOL/L (3.5-5.1); SODIUM LEVEL 140 MMOL/L (136-145)
== END ==
LOC: M LABWUC 16:19
PROVIDERS: ATTEND Nurse Practitioner Adult Health
DX: I10 Essential (primary) hypertension (principal)

== ENCOUNTER 2022-03-29 06:53 | Emergency (ER) | payer OTHER ==
[~2022-03-29] VITALS: Ht 172.7 cm; Wt 98.5 kg
[~2022-03-29 06:53] MED LIST changes: -HYDR-3490 PO
[2022-03-29 07:46] LABS: BASO % 0.5 % (0.0-1.0); EOS # 0.1 10^3/uL (0.0-0.5); EOS % 0.9 % (0.0-3.0); HEMATOCRIT 42.8 % (36.0-47.0); HEMOGLOBIN 14.8 g/dl (12.0-15.5); LYMPH # 2.4 10^3/uL (1.5-5.0); LYMPH % 37.7 % (24.0-44.0); MEAN CORPUSCULAR HEMOGLOBIN 31.2 pg (27.0-33.0); MEAN CORPUSCULAR HGB CONC 34.6 g/dl (32.0-36.5); MEAN CORPUSCULAR VOLUME 90.1 fl (80.0-96.0); MONO # 0.4 10^3/uL (0.0-0.8); MONO % 5.8 % (2.0-8.0); NEUTROPHILS # 3.5 10^3/uL (1.5-8.5); NEUTROPHILS % 54.9 % (36.0-66.0); PLATELET COUNT, AUTOMATED 309 10^3/uL (150-450); RED BLOOD COUNT 4.75 10^6/uL (4.00-5.40); WHITE BLOOD COUNT 6.3 10^3/uL (4.0-10.0)
[2022-03-29 08:05] LABS: CK-MB VALUE MASS < 1.0 NG/ML (<3.6)
[2022-03-29 08:06] LABS: BLOOD UREA NITROGEN 18 MG/DL (9-23); CALCIUM LEVEL 9.6 MG/DL (8.3-10.6); CARBON DIOXIDE LEVEL 25 MMOL/L (20-31); CHLORIDE LEVEL 105 MMOL/L (98-107); CREATININE FOR GFR 0.76 MG/DL (0.55-1.30); GLOMERULAR FILTRATION RATE > 60.0 (>45); GLUCOSE, FASTING 114 MG/DL (74-106); POTASSIUM SERUM 3.6 MMOL/L (3.5-5.1); SODIUM LEVEL 142 MMOL/L (136-145)
[2022-03-29 08:12] LABS: CPK CREATINE PHOSPHOKINASE 34 U/L (34-145); MB/CK RELATIVE INDEX 2.94 (< OR =4)
[2022-03-29] MEDS ORDERED: HYDR-3490 PO (09:43)
[2022-03-29 09:46] LABS: CK-MB VALUE MASS < 1.0 NG/ML (<3.6)
[2022-03-29 09:56] LABS: CPK CREATINE PHOSPHOKINASE 34 U/L (34-145); MB/CK RELATIVE INDEX 2.94 (< OR =4)
[2022-03-29 11:42] LABS: CK-MB VALUE MASS < 1.0 NG/ML (<3.6)
[2022-03-29 11:44] LABS: CPK CREATINE PHOSPHOKINASE 32 U/L (34-145); MB/CK RELATIVE INDEX 3.12 (< OR =4)
[2022-03-29 13:17] VITALS: BP 194/94
== END 2022-03-29 13:20 | disposition home or self-care (01) ==
LOC: M ED 06:53
DX: R07.9 Chest pain, unspecified (principal); I51.9 Heart disease, unspecified; I10 Essential (primary) hypertension; F41.9 Anxiety disorder, unspecified; Z82.49 Family history of ischemic heart disease and other diseases of the circulatory system; Z79.899 Other long term (current) drug therapy; Z88.8 Allergy status to other drugs, medicaments and biological substances

== ENCOUNTER 2022-04-16 09:25 | Emergency (ER) | payer OTHER ==
[~2022-04-16] VITALS: Ht 172.7 cm; Wt 95.5 kg
[~2022-04-16 09:25] MED LIST changes: +HYDR-3490 PO
[2022-04-16 10:12] LABS: BASO % 0.3 % (0.0-1.0); EOS % 0.1 % (0.0-3.0); HEMATOCRIT 44.6 % (36.0-47.0); HEMOGLOBIN 15.5 g/dl (12.0-15.5); LYMPH # 1.5 10^3/uL (1.5-5.0); LYMPH % 22.2 % (24.0-44.0); MEAN CORPUSCULAR HEMOGLOBIN 31.3 pg (27.0-33.0); MEAN CORPUSCULAR HGB CONC 34.8 g/dl (32.0-36.5); MEAN CORPUSCULAR VOLUME 89.9 fl (80.0-96.0); MONO # 0.3 10^3/uL (0.0-0.8); MONO % 4.5 % (2.0-8.0); NEUTROPHILS # 4.8 10^3/uL (1.5-8.5); NEUTROPHILS % 72.6 % (36.0-66.0); PLATELET COUNT, AUTOMATED 322 10^3/uL (150-450); RED BLOOD COUNT 4.96 10^6/uL (4.00-5.40); WHITE BLOOD COUNT 6.7 10^3/uL (4.0-10.0)
[2022-04-16 10:23] LABS: PARTIAL THROMBOPLASTIN TIME 26.2 SECONDS (24.8-34.2); PROTHROMBIN TIME 13.4 SECONDS (12.5-14.5)
[2022-04-16 10:41] LABS: LIPASE 32 U/L (12-53)
[2022-04-16 10:42] LABS: ALBUMIN 4.3 G/DL (3.2-5.2); ALKALINE PHOSPHATASE 81 U/L (46-116); ALT/SGPT 12 U/L (7.0-40); AST/SGOT 15 U/L (<34); BILIRUBIN,DIRECT 0.2 MG/DL (<0.4); BILIRUBIN,TOTAL 0.6 MG/DL (0.3-1.2); BLOOD UREA NITROGEN 14 MG/DL (9-23); CARBON DIOXIDE LEVEL 24 MMOL/L (20-31); CHLORIDE LEVEL 101 MMOL/L (98-107); CK-MB VALUE MASS < 1.0 NG/ML (<3.6); CPK CREATINE PHOSPHOKINASE 32 U/L (34-145); CREATININE FOR GFR 0.75 MG/DL (0.55-1.30); GLOMERULAR FILTRATION RATE > 60.0 (>45); GLUCOSE, FASTING 123 MG/DL (74-106); MB/CK RELATIVE INDEX 3.12 (< OR =4); POTASSIUM SERUM 3.4 MMOL/L (3.5-5.1); SODIUM LEVEL 137 MMOL/L (136-145); TOTAL PROTEIN 7.8 G/DL (5.7-8.2)
[2022-04-16 10:44] LABS: FREE T4 1.31 NG/DL (0.89-1.76); THYROID STIMULATING HORMONE 1.316 uIU/ML (0.55-4.78)
[2022-04-16 12:07] LABS: CK-MB VALUE MASS < 1.0 NG/ML (<3.6)
[2022-04-16 12:09] LABS: CPK CREATINE PHOSPHOKINASE 36 U/L (34-145); MB/CK RELATIVE INDEX 2.77 (< OR =4)
[2022-04-16 12:32] VITALS: BP 144/80
== END 2022-04-16 12:41 | disposition home or self-care (01) ==
LOC: M ED 09:25
DX: R07.89 Other chest pain (principal); R00.2 Palpitations; I10 Essential (primary) hypertension; Z88.1 Allergy status to other antibiotic agents; Z79.899 Other long term (current) drug therapy

== ENCOUNTER 2022-04-18 16:49 | Emergency (ER) | payer OTHER ==
[~2022-04-18] VITALS: Ht 172.7 cm; Wt 95.5 kg
[2022-04-18] MEDS ORDERED: ALPR0.5T3 (17:01)
[2022-04-18] MEDS ORDERED: FAMO40TA3 (17:01)
[2022-04-19 00:51] LABS: BASO % 0.3 % (0.0-1.0); EOS % 0.4 % (0.0-3.0); HEMATOCRIT 47.3 % (36.0-47.0); HEMOGLOBIN 15.9 g/dl (12.0-15.5); LYMPH # 2.2 10^3/uL (1.5-5.0); LYMPH % 28.4 % (24.0-44.0); MEAN CORPUSCULAR HEMOGLOBIN 30.9 pg (27.0-33.0); MEAN CORPUSCULAR HGB CONC 33.6 g/dl (32.0-36.5); MONO # 0.4 10^3/uL (0.0-0.8); MONO % 4.7 % (2.0-8.0); NEUTROPHILS # 5.1 10^3/uL (1.5-8.5); NEUTROPHILS % 65.9 % (36.0-66.0); PLATELET COUNT, AUTOMATED 317 10^3/uL (150-450); RED BLOOD COUNT 5.14 10^6/uL (4.00-5.40); WHITE BLOOD COUNT 7.7 10^3/uL (4.0-10.0)
[2022-04-19 01:06] LABS: INR 1.01; PARTIAL THROMBOPLASTIN TIME 28.7 SECONDS (24.8-34.2); PROTHROMBIN TIME 13.5 SECONDS (12.5-14.5)
[2022-04-19 01:22] LABS: BLOOD UREA NITROGEN 16 MG/DL (9-23); CALCIUM LEVEL 9.7 MG/DL (8.3-10.6); CARBON DIOXIDE LEVEL 26 MMOL/L (20-31); CHLORIDE LEVEL 100 MMOL/L (98-107); CK-MB VALUE MASS < 1.0 NG/ML (<3.6); CREATININE FOR GFR 0.76 MG/DL (0.55-1.30); GLOMERULAR FILTRATION RATE > 60.0 (>45); GLUCOSE, FASTING 105 MG/DL (74-106); POTASSIUM SERUM 3.5 MMOL/L (3.5-5.1); SODIUM LEVEL 138 MMOL/L (136-145)
[2022-04-19 01:30] VITALS: BP 166/76
[2022-04-19] MEDS ORDERED: ISOVUE-370 76% 100ML VIAL As Ordered ONE (01:55)
[2022-04-19 01:56] LABS: CPK CREATINE PHOSPHOKINASE 25 U/L (34-145)
== END 2022-04-19 03:28 | disposition home or self-care (01) ==
LOC: M ED 16:49
DX: R07.89 Other chest pain (principal); I25.10 Atherosclerotic heart disease of native coronary artery without angina pectoris; Z79.899 Other long term (current) drug therapy; Z88.8 Allergy status to other drugs, medicaments and biological substances

== ENCOUNTER → 2022-05-07 | Outpatient (CLI) | payer OTHER ==
[~2022-05-07] MED LIST changes: +ALPR0.5T3; +FAMO40TA3
[2022-05-07 13:30] LABS: BASO % 0.4 % (0.0-1.0); EOS # 0.1 10^3/uL (0.0-0.5); EOS % 1.7 % (0.0-3.0); HEMATOCRIT 43.4 % (36.0-47.0); HEMOGLOBIN 14.4 g/dl (12.0-15.5); LYMPH # 1.5 10^3/uL (1.5-5.0); LYMPH % 32.5 % (24.0-44.0); MEAN CORPUSCULAR HEMOGLOBIN 30.9 pg (27.0-33.0); MEAN CORPUSCULAR HGB CONC 33.2 g/dl (32.0-36.5); MEAN CORPUSCULAR VOLUME 93.1 fl (80.0-96.0); MONO # 0.3 10^3/uL (0.0-0.8); MONO % 7.1 % (2.0-8.0); NEUTROPHILS # 2.7 10^3/uL (1.5-8.5); NEUTROPHILS % 58.1 % (36.0-66.0); PLATELET COUNT, AUTOMATED 273 10^3/uL (150-450); RED BLOOD COUNT 4.66 10^6/uL (4.00-5.40); WHITE BLOOD COUNT 4.6 10^3/uL (4.0-10.0)
[2022-05-07 13:37] LABS: ALBUMIN 3.8 G/DL (3.2-5.2); ALKALINE PHOSPHATASE 67 U/L (46-116); ALT/SGPT 18 U/L (7.0-40); AST/SGOT 18 U/L (<34); BILIRUBIN,TOTAL 0.7 MG/DL (0.3-1.2); BLOOD UREA NITROGEN 15 MG/DL (9-23); CARBON DIOXIDE LEVEL 28 MMOL/L (20-31); CHLORIDE LEVEL 108 MMOL/L (98-107); CHOLESTEROL LEVEL 147 MG/DL (<200); CHOLESTEROL RISK RATIO 2.92 (<5); CREATININE FOR GFR 0.72 MG/DL (0.55-1.30); GLOMERULAR FILTRATION RATE > 60.0 (>45); GLUCOSE, FASTING 97 MG/DL (74-106); HDL CHOLESTEROL 50.3 MG/DL (>40); LDL CHOLESTEROL 86.1 MG/DL (<100); NON-HDL-C 97 MG/DL; POTASSIUM SERUM 4.7 MMOL/L (3.5-5.1); SODIUM LEVEL 142 MMOL/L (136-145); TOTAL PROTEIN 6.8 G/DL (5.7-8.2); TRIGLYCERIDES LEVEL 53 MG/DL (<150)
[2022-05-07 14:02] LABS: HEMOGLOBIN A1c 5.2 % (4.0-6.0)
== END ==
LOC: M WUC 09:03
PROVIDERS: ATTEND Physician Assistant
DX: E78.5 Hyperlipidemia, unspecified (principal); Z13.29 Encounter for screening for other suspected endocrine disorder

== ENCOUNTER 2022-06-26 18:56 | Inpatient (IN) | payer OTHER ==
[~2022-06-26] VITALS: Ht 172.7 cm; Wt 95.5 kg
[2022-06-26] MEDS ORDERED: LABETALOL 100MG/20ML VIAL IV STA (19:44)
[2022-06-26 19:50] VITALS: BP 203/98
[2022-06-26 19:56] VITALS: BP 195/91
[2022-06-26] MEDS ORDERED: ISOVUE-370 76% 100ML VIAL As Ordered ONE (20:05)
[2022-06-26 20:06] LABS: BASO % 0.5 % (0.0-1.0); EOS # 0.1 10^3/uL (0.0-0.5); EOS % 1.4 % (0.0-3.0); HEMATOCRIT 41.8 % (36.0-47.0); HEMOGLOBIN 13.9 g/dl (12.0-15.5); LYMPH # 2.1 10^3/uL (1.5-5.0); LYMPH % 32.4 % (24.0-44.0); MEAN CORPUSCULAR HEMOGLOBIN 30.4 pg (27.0-33.0); MEAN CORPUSCULAR HGB CONC 33.3 g/dl (32.0-36.5); MEAN CORPUSCULAR VOLUME 91.5 fl (80.0-96.0); MONO # 0.4 10^3/uL (0.0-0.8); NEUTROPHILS # 3.9 10^3/uL (1.5-8.5); NEUTROPHILS % 59.5 % (36.0-66.0); PLATELET COUNT, AUTOMATED 284 10^3/uL (150-450); RED BLOOD COUNT 4.57 10^6/uL (4.00-5.40); WHITE BLOOD COUNT 6.6 10^3/uL (4.0-10.0)
[2022-06-26 20:18] LABS: INR 0.96; PARTIAL THROMBOPLASTIN TIME 26.4 SECONDS (24.8-34.2)
[2022-06-26 20:28] LABS: CK-MB VALUE MASS < 1.0 NG/ML (<3.6)
[2022-06-26 20:30] LABS: BLOOD UREA NITROGEN 17 MG/DL (9-23); CALCIUM LEVEL 9.5 MG/DL (8.3-10.6); CARBON DIOXIDE LEVEL 30 MMOL/L (20-31); CHLORIDE LEVEL 105 MMOL/L (98-107); CPK CREATINE PHOSPHOKINASE 42 U/L (34-145); CREATININE FOR GFR 0.75 MG/DL (0.55-1.30); GLOMERULAR FILTRATION RATE > 60.0 (>45); GLUCOSE, FASTING 106 MG/DL (74-106); MB/CK RELATIVE INDEX 2.38 (< OR =4); SODIUM LEVEL 143 MMOL/L (136-145)
[2022-06-26 20:35] LABS: RSV AMPLIFICATION NEGATIVE (NEGATIVE)
[2022-06-26 21:09] VITALS: BP 155/85
[2022-06-26 21:50] LABS: APPEARANCE, URINE CLEAR (CLEAR); BACTERIA, URINE AUTO NEGATIVE (NEGATIVE); BILIRUBIN, URINE AUTO NEGATIVE (NEGATIVE); BLOOD, URINE BLOOD NEGATIVE (NEGATIVE); COLOR, URINE STRAW (YELLOW); GLUCOSE, URINE (UA) AUTO NEGATIVE (NEGATIVE); KETONE, URINE AUTO NEGATIVE (NEGATIVE); LEUKOCYTE ESTERASE, URINE AUTO NEGATIVE (NEGATIVE); NITRITE, URINE AUTO NEGATIVE (NEGATIVE); PROTEIN, URINE AUTO NEGATIVE (NEGATIVE); RBC, URINE AUTO 3 /HPF (0-3); SPECIFIC GRAVITY URINE AUTO 1.025 (1.002-1.035); SQUAMOUS EPITHELIAL CELL UR AU 0 /HPF (0-6); UROBILINOGEN, URINE AUTO 0.2 mg/dL (0.0-2.0); WBC, URINE AUTO 1 /HPF (0-3)
[2022-06-26] MEDS ORDERED: LOSA100T45 PO (22:29)
[2022-06-26] MEDS ORDERED: LEVA45AE INH (22:29)
[2022-06-26] MEDS ORDERED: FLEC50HA PO (22:29)
[2022-06-26] MEDS ORDERED: CLAR10TA7 PO (22:29)
[2022-06-26] MEDS ORDERED: ACET-897 PO (22:29)
[2022-06-26] MEDS ORDERED: ALPR0.5T3 PO (22:29)
[2022-06-26] MEDS ORDERED: OXYB-54 PO (22:29)
[2022-06-26] MEDS ORDERED: OYST500T92 PO (22:29)
[2022-06-26] MEDS ORDERED: VITA500030 PO (22:29)
[2022-06-26] MEDS ORDERED: VITMTA PO (22:29)
[2022-06-26] MEDS ORDERED: HOME MED LIST COMPLETE! XX SCH ×2 (22:30→22:35)
[2022-06-26] MEDS ORDERED: MOM 30ML SUSPENSION UDC PO PRN (23:10)
[2022-06-26] MEDS ORDERED: MAALOX 30 ML SUSP *UDC PO PRN (23:10)
[2022-06-26] MEDS ORDERED: ACETAMINOPHEN TAB 650MG DOSE (2X325MG) PO PRN (23:10)
[2022-06-27] MEDS: FLECAINIDE 50MG TABLET PO SCH ×2 (00:05→11:12)
[2022-06-27 00:08] LABS: CHOLESTEROL LEVEL 146 MG/DL (<200); CHOLESTEROL RISK RATIO 2.68 (<5); HDL CHOLESTEROL 54.3 MG/DL (>40); LDL CHOLESTEROL 80.9 MG/DL (<100); NON-HDL-C 91.7 MG/DL; TRIGLYCERIDES LEVEL 54 MG/DL (<150)
[2022-06-27 08:00] VITALS: BP 165/95
[2022-06-27] MEDS ORDERED: oxyBUTYnin *DITROPAN XL* 5 MG TABCR PO SCH (09:00)
[2022-06-27] MEDS ORDERED: HEPARIN SOD (PORCINE) 5000UNITS/ML 1ML VIAL/SYRINGE SC SCH (09:00)
[2022-06-27 11:33] LABS: HEMATOCRIT 40.9 % (36.0-47.0); HEMOGLOBIN 13.5 g/dl (12.0-15.5); MEAN CORPUSCULAR HEMOGLOBIN 30.5 pg (27.0-33.0); MEAN CORPUSCULAR VOLUME 92.5 fl (80.0-96.0); PLATELET COUNT, AUTOMATED 264 10^3/uL (150-450); RED BLOOD COUNT 4.42 10^6/uL (4.00-5.40)
[2022-06-27 12:07] LABS: BLOOD UREA NITROGEN 13 MG/DL (9-23); CALCIUM LEVEL 9.2 MG/DL (8.3-10.6); CARBON DIOXIDE LEVEL 30 MMOL/L (20-31); CHLORIDE LEVEL 108 MMOL/L (98-107); CREATININE FOR GFR 0.68 MG/DL (0.55-1.30); GLOMERULAR FILTRATION RATE > 60.0 (>45); GLUCOSE, FASTING 94 MG/DL (74-106); POTASSIUM SERUM 4.4 MMOL/L (3.5-5.1); SODIUM LEVEL 143 MMOL/L (136-145)
[2022-06-27] MEDS ORDERED: AMLO1TAB24 PO (14:28)
== END 2022-06-27 14:55 | disposition home or self-care (01) | DRG 305 ==
LOC: M ED 18:56 → M ED INP 22:42 → ENRESERV 06-27 12:25
PROVIDERS: ADMIT Family Medicine; ATTEND Family Medicine
DX: I16.1 Hypertensive emergency (principal); I10 Essential (primary) hypertension; N32.81 Overactive bladder; R00.2 Palpitations; Z20.822 Contact with and (suspected) exposure to COVID-19; Z79.899 Other long term (current) drug therapy; Z88.1 Allergy status to other antibiotic agents

== ENCOUNTER → 2022-07-27 | Outpatient (CLI) | payer OTHER ==
[~2022-07-27] MED LIST changes: +ACET-897 PO; +ALPR0.5T3 PO; +AMLO1TAB24 PO; +CLAR10TA7 PO; +FLEC50HA PO; +LEVA45AE INH; -LOSA100T45; +LOSA100T46; +LOSA100T46 PO; +OXYB-54 PO; +OYST500T92 PO; +VITA500030 PO; +VITMTA PO
== END ==
LOC: M WUC 09:18
PROVIDERS: ATTEND Physician Assistant
DX: M47.892 Other spondylosis, cervical region (principal); M54.2 Cervicalgia

== ENCOUNTER → 2022-07-30 | Outpatient (CLI) | payer OTHER | LOC: M RAD 16:20 | PROVIDERS: ATTEND Physician Assistant | DX: E04.1 Nontoxic single thyroid nodule (principal) ==

== ENCOUNTER → 2022-08-29 | Outpatient (CLI) | payer OTHER ==
[2022-08-29 19:39] LABS: THYROID STIMULATING HORMONE 1.181 uIU/ML (0.55-4.78)
== END ==
LOC: M WUC 15:25
PROVIDERS: ATTEND Nurse Practitioner Family
DX: E04.2 Nontoxic multinodular goiter (principal)

== ENCOUNTER → 2022-12-12 | Outpatient (REF) | payer OTHER | LOC: M LAB REF 17:02 | PROVIDERS: ATTEND Physician Assistant | DX: J06.9 Acute upper respiratory infection, unspecified (principal) ==

== ENCOUNTER → 2023-02-22 | Outpatient (CLI) | payer OTHER | LOC: M WUC 11:11 | PROVIDERS: ATTEND Physician Assistant | DX: J20.9 Acute bronchitis, unspecified (principal) ==

== ENCOUNTER → 2023-03-15 | Outpatient (CLI) | payer OTHER ==
[2023-03-15 10:40] LABS: BASO % 0.5 % (0.0-1.0); EOS # 0.2 10^3/uL (0.0-0.5); EOS % 4.1 % (0.0-3.0); HEMATOCRIT 41.1 % (36.0-47.0); HEMOGLOBIN 13.8 g/dl (12.0-15.5); LYMPH # 1.9 10^3/uL (1.5-5.0); LYMPH % 31.8 % (24.0-44.0); MEAN CORPUSCULAR HEMOGLOBIN 30.8 pg (27.0-33.0); MEAN CORPUSCULAR HGB CONC 33.6 g/dl (32.0-36.5); MEAN CORPUSCULAR VOLUME 91.7 fl (80.0-96.0); MONO # 0.4 10^3/uL (0.0-0.8); MONO % 6.9 % (2.0-8.0); NEUTROPHILS # 3.3 10^3/uL (1.5-8.5); NEUTROPHILS % 56.4 % (36.0-66.0); PLATELET COUNT, AUTOMATED 300 10^3/uL (150-450); RED BLOOD COUNT 4.48 10^6/uL (4.00-5.40); WHITE BLOOD COUNT 5.8 10^3/uL (4.0-10.0)
[2023-03-15 11:04] LABS: ALBUMIN 3.7 G/DL (3.2-5.2); ALKALINE PHOSPHATASE 73 U/L (46-116); ALT/SGPT 15 U/L (7.0-40); AST/SGOT 10 U/L (<34); BILIRUBIN,TOTAL 0.6 MG/DL (0.3-1.2); BLOOD UREA NITROGEN 18 MG/DL (9-23); CARBON DIOXIDE LEVEL 30 MMOL/L (20-31); CHLORIDE LEVEL 109 MMOL/L (98-107); CHOLESTEROL LEVEL 167 MG/DL (<200); CREATININE FOR GFR 0.69 MG/DL (0.55-1.30); GLOMERULAR FILTRATION RATE > 60.0 (>45); GLUCOSE, FASTING 90 MG/DL (74-106); HDL CHOLESTEROL 50.5 MG/DL (>40); LDL CHOLESTEROL 106.5 MG/DL (<100); NON-HDL-C 116.5 MG/DL; POTASSIUM SERUM 4.5 MMOL/L (3.5-5.1); SODIUM LEVEL 144 MMOL/L (136-145); TOTAL PROTEIN 6.6 G/DL (5.7-8.2); TRIGLYCERIDES LEVEL 50 MG/DL (<150)
[2023-03-15 11:05] LABS: FREE T4 1.03 NG/DL (0.89-1.76); THYROID STIMULATING HORMONE 1.436 uIU/ML (0.55-4.78)
== END ==
LOC: M WUC 08:48
PROVIDERS: ATTEND Physician Assistant
DX: I10 Essential (primary) hypertension (principal); E78.5 Hyperlipidemia, unspecified

== ENCOUNTER 2023-07-24 15:59 | Emergency (ER) | payer OTHER ==
[~2023-07-24] VITALS: Ht 172.7 cm; Wt 97.5 kg
[2023-07-24] MEDS ORDERED: SEMA1PEN4 SQ (16:08)
[2023-07-24] MEDS ORDERED: ZITH250T PO (16:08)
[2023-07-24 19:14] VITALS: TEMP 97.9
[2023-07-24 20:10] LABS: BASO % 0.3 % (0.0-1.0); EOS % 0.6 % (0.0-3.0); HEMATOCRIT 41.4 % (36.0-47.0); HEMOGLOBIN 14.5 g/dl (12.0-15.5); MEAN CORPUSCULAR HEMOGLOBIN 31.5 pg (27.0-33.0); MONO # 0.3 10^3/uL (0.0-0.8); MONO % 5.1 % (2.0-8.0); NEUTROPHILS # 4.1 10^3/uL (1.5-8.5); NEUTROPHILS % 63.7 % (36.0-66.0); PLATELET COUNT, AUTOMATED 258 10^3/uL (150-450); WHITE BLOOD COUNT 6.5 10^3/uL (4.0-10.0)
[2023-07-24 20:23] LABS: BLOOD UREA NITROGEN 14 MG/DL (9-23); CALCIUM LEVEL 9.3 MG/DL (8.3-10.6); CARBON DIOXIDE LEVEL 26 MMOL/L (20-31); CHLORIDE LEVEL 107 MMOL/L (98-107); CREATININE FOR GFR 0.75 MG/DL (0.55-1.30); GLOMERULAR FILTRATION RATE > 60.0 (>45); GLUCOSE, FASTING 86 MG/DL (74-106); MAGNESIUM LEVEL 1.8 MG/DL (1.8-2.4); POTASSIUM SERUM 4.1 MMOL/L (3.5-5.1); SODIUM LEVEL 140 MMOL/L (136-145)
[2023-07-24 20:26] LABS: FREE T4 1.18 NG/DL (0.89-1.76); THYROID STIMULATING HORMONE 1.071 uIU/ML (0.55-4.78)
[2023-07-24 20:50] LABS: CK-MB VALUE MASS < 1.0 NG/ML (<3.6)
[2023-07-24 20:53] LABS: CPK CREATINE PHOSPHOKINASE 40 U/L (34-145)
[2023-07-24 21:12] VITALS: BP 152/84; O2SAT 99
== END 2023-07-24 21:38 | disposition home or self-care (01) ==
LOC: M ED 15:59
DX: I49.3 Ventricular premature depolarization (principal); I10 Essential (primary) hypertension; F41.9 Anxiety disorder, unspecified; Z79.899 Other long term (current) drug therapy; Z88.8 Allergy status to other drugs, medicaments and biological substances

== ENCOUNTER → 2023-08-01 | Outpatient (CLI) | payer OTHER ==
[~2023-08-01] MED LIST changes: +SEMA1PEN4 SQ; +ZITH250T PO
== END ==
LOC: M EKG 15:58
PROVIDERS: ATTEND Internal Medicine Cardiovascular Disease
DX: R00.2 Palpitations (principal)

== ENCOUNTER → 2023-10-07 | Outpatient (CLI) | payer OTHER ==
[~2023-10-07] MED LIST changes: +ONDA-282 PO; -ONDA4TAB6 PO
== END ==
LOC: M WUC 09:05
PROVIDERS: ATTEND Internal Medicine Endocrinology, Diabetes & Metabolism
DX: E04.2 Nontoxic multinodular goiter (principal)

== ENCOUNTER → 2023-11-07 | Outpatient (CLI) | payer OTHER | LOC: M WUC 13:54 | PROVIDERS: ATTEND Physician Assistant | DX: S80.12XA Contusion of left lower leg, initial encounter (principal); Y93.9 Activity, unspecified; Y92.9 Unspecified place or not applicable ==

== ENCOUNTER 2024-06-08 19:28 | Emergency (ER) | payer OTHER ==
[~2024-06-08] VITALS: Ht 172.7 cm; Wt 86.4 kg
[~2024-06-08 19:28] MED LIST changes: +LEVA15HF2 INH; -LEVAINH INH
[2024-06-08 19:53] LABS: BASO % 0.4 % (0.0-1.0); EOS # 0.1 10^3/uL (0.0-0.5); EOS % 1.2 % (0.0-3.0); HEMATOCRIT 40.6 % (36.0-47.0); HEMOGLOBIN 13.9 g/dl (12.0-15.5); LYMPH # 2.9 10^3/uL (1.5-5.0); LYMPH % 37.6 % (24.0-44.0); MEAN CORPUSCULAR HEMOGLOBIN 30.9 pg (27.0-33.0); MEAN CORPUSCULAR HGB CONC 34.2 g/dl (32.0-36.5); MEAN CORPUSCULAR VOLUME 90.2 fl (80.0-96.0); MONO # 0.5 10^3/uL (0.0-0.8); MONO % 5.9 % (2.0-8.0); NEUTROPHILS # 4.2 10^3/uL (1.5-8.5); NEUTROPHILS % 54.6 % (36.0-66.0); PLATELET COUNT, AUTOMATED 274 10^3/uL (150-450); WHITE BLOOD COUNT 7.6 10^3/uL (4.0-10.0)
[2024-06-08 20:23] LABS: CK-MB VALUE MASS < 1.0 NG/ML (<3.6); LIPASE 39 U/L (12-53)
[2024-06-08 20:25] LABS: ALBUMIN 3.6 G/DL (3.2-5.2); ALKALINE PHOSPHATASE 61 U/L (35-104); ALT/SGPT 20 U/L (7.0-40); AST/SGOT 11 U/L (<34); BILIRUBIN,DIRECT 0.1 MG/DL (<0.4); BILIRUBIN,TOTAL 0.3 MG/DL (0.3-1.2); BLOOD UREA NITROGEN 16 MG/DL (9-23); CARBON DIOXIDE LEVEL 27 MMOL/L (20-31); CHLORIDE LEVEL 106 MMOL/L (98-107); CPK CREATINE PHOSPHOKINASE 38 U/L (34-145); CREATININE FOR GFR 0.77 MG/DL (0.55-1.30); GLOMERULAR FILTRATION RATE > 60.0 (>45); GLUCOSE, FASTING 106 MG/DL (74-106); MB/CK RELATIVE INDEX 2.63 (< OR =4); POTASSIUM SERUM 3.9 MMOL/L (3.5-5.1); SODIUM LEVEL 141 MMOL/L (136-145); TOTAL PROTEIN 6.7 G/DL (5.7-8.2)
[2024-06-08 20:27] LABS: THYROID STIMULATING HORMONE 1.543 uIU/ML (0.55-4.78)
[2024-06-08] MEDS ORDERED: ISOVUE-370 76% 100ML VIAL As Ordered ONE (21:28)
[2024-06-08 22:45] LABS: CK-MB VALUE MASS < 1.0 NG/ML (<3.6)
[2024-06-08 22:46] LABS: CPK CREATINE PHOSPHOKINASE 28 U/L (34-145); MB/CK RELATIVE INDEX 3.57 (< OR =4)
[2024-06-08 23:20] VITALS: BP 141/75; TEMP 98.1; O2SAT 97
[2024-06-08] MEDS: ASPIRIN 81MG CHEW TABLET PO ONE (23:20)
== END 2024-06-08 23:21 | disposition home or self-care (01) ==
LOC: M ED 19:28
DX: R07.89 Other chest pain (principal); I25.10 Atherosclerotic heart disease of native coronary artery without angina pectoris; I77.810 Thoracic aortic ectasia; R00.2 Palpitations; Z79.899 Other long term (current) drug therapy; Z88.8 Allergy status to other drugs, medicaments and biological substances
CPT/HCPCS: 71045; 71275; 80048; 80076; 82550; 82553; 83690; 84439; 84443; 84484; 85025; 93005; 99284; Q9967

== ENCOUNTER 2024-06-11 08:42 | Emergency (ER) | payer OTHER ==
[~2024-06-11] VITALS: Ht 172.7 cm; Wt 87.5 kg
[2024-06-11] MEDS ORDERED: ECOT81TA5 PO (08:52)
[2024-06-11] MEDS ORDERED: SERT50TA29 PO (09:32)
[2024-06-11] MEDS ORDERED: TIRZ7.5P3 PO (09:32)
[2024-06-11] MEDS ORDERED: B-12100010 PO (09:32)
[2024-06-11] MEDS ORDERED: MULTTAB61 PO (11:43)
[2024-06-11] MEDS ORDERED: HOME MED LIST COMPLETE! XX SCH (11:45)
[2024-06-11 12:42] VITALS: BP 174/93; TEMP 96.5; O2SAT 98
== END 2024-06-11 12:46 | disposition home or self-care (01) ==
LOC: M ED 08:42
DX: F41.9 Anxiety disorder, unspecified (principal); I10 Essential (primary) hypertension; F32.A Depression, unspecified; Z79.899 Other long term (current) drug therapy; Z88.1 Allergy status to other antibiotic agents

== ENCOUNTER → 2024-06-30 | Outpatient (CLI) | payer OTHER ==
[~2024-06-30] MED LIST changes: +B-12100010 PO; +ECOT81TA5 PO; +MULTTAB61 PO; +SERT50TA29 PO; +TIRZ7.5P3 PO
== END ==
LOC: M WUC 11:21
PROVIDERS: ATTEND Physician Assistant
DX: R07.89 Other chest pain (principal); A08.39 Other viral enteritis

== ENCOUNTER → 2024-10-16 | Outpatient (CLI) | payer OTHER | LOC: M PLAIMG 10:38 | PROVIDERS: ATTEND Physician Assistant | DX: I34.0 Nonrheumatic mitral (valve) insufficiency (principal) ==